=== PATIENT | female | born 1950 | race Caucasian/White ===

== ENCOUNTER → 2021-02-02 | Outpatient (CLI) | payer MEDICARE, OTHER | LOC: MAMO 11:30 | DX: Z12.31 Encounter for screening mammogram for malignant neoplasm of breast (principal); Z53.9 Procedure and treatment not carried out, unspecified reason ==

== ENCOUNTER → 2021-02-24 | Outpatient (CLI) | payer MEDICARE, OTHER | LOC: MAMO 09:30 | DX: Z12.31 Encounter for screening mammogram for malignant neoplasm of breast (principal); Z80.3 Family history of malignant neoplasm of breast | CPT/HCPCS: 77063; 77067 ==

== ENCOUNTER → 2021-04-03 | Outpatient (CLI) | payer MEDICARE | LOC: MAMO 14:25 | DX: R92.8 Other abnormal and inconclusive findings on diagnostic imaging of breast (principal); Z78.0 Asymptomatic menopausal state | CPT/HCPCS: 77065; G0279 ==

== ENCOUNTER 2021-06-24 14:35 | Observation (INO) | payer MEDICARE, OTHER ==
[~2021-06-24] VITALS: Ht 167.6 cm; Wt 59.0 kg
[2021-06-24 15:20] LABS: HEMOGLOBIN 12.4 gm/dl (12.3-15.3); RED BLOOD COUNT 4.1 M/UL (4.00-5.10); WHITE BLOOD COUNT 7.8 K/UL (4.5-11.0)
[2021-06-24 15:57] LABS: BUN/CREATININE RATIO 20 (0-10)
[2021-06-25 02:09] LABS: HEMOGLOBIN 12.1 gm/dl (12.3-15.3); RED BLOOD COUNT 3.97 M/UL (4.00-5.10); WHITE BLOOD COUNT 8.1 K/UL (4.5-11.0)
[2021-06-25 02:31] LABS: BUN/CREATININE RATIO 17 (0-10)
[2021-06-25] MEDS ORDERED: SUMATRIPTAN SU100 MG PO (10:51)
[2021-06-25] MEDS ORDERED: VENTOLIN HFA 66.7 GM INH (10:52)
[2021-06-25] MEDS ORDERED: ALENDRONATE SOD70 MG PO (10:53)
[2021-06-25] MEDS ORDERED: AMLODIPINE BESYL5 MG PO (10:53)
[2021-06-25] MEDS ORDERED: VITAMIN D 40400 UNIT PO (10:54)
[2021-06-25] MEDS ORDERED: PAROXETINE HCL30 MG PO (10:54)
[2021-06-25] MEDS ORDERED: HEALTHY EYES T1 EACH PO (10:55)
[2021-06-25] MEDS ORDERED: SUDAFED 30 MG T30 MG PO (10:58)
[2021-06-25] MEDS ORDERED: CLARITIN10 M1 PO (10:58)
[2021-06-26 03:26] LABS: BUN/CREATININE RATIO 18 (0-10)
== END 2021-06-26 11:43 | disposition home or self-care (01) ==
LOC: ER1 14:35 → M/S 18:51 → CDU 18:51 → M/S 06-25 06:48
PROVIDERS: Emergency Medicine; ADMIT Internal Medicine
DX: E86.1 Hypovolemia (principal); S20.211A Contusion of right front wall of thorax, initial encounter; S30.1XXA Contusion of abdominal wall, initial encounter; R11.2 Nausea with vomiting, unspecified; R19.7 Diarrhea, unspecified; I45.10 Unspecified right bundle-branch block; K90.0 Celiac disease; G43.909 Migraine, unspecified, not intractable, without status migrainosus; R20.2 Paresthesia of skin; R74.01 Elevation of levels of liver transaminase levels; M81.0 Age-related osteoporosis without current pathological fracture; L92.8 Other granulomatous disorders of the skin and subcutaneous tissue; M41.9 Scoliosis, unspecified; Z20.822 Contact with and (suspected) exposure to COVID-19; Z87.891 Personal history of nicotine dependence; W18.30XA Fall on same level, unspecified, initial encounter; Y92.017 Garden or yard in single-family (private) house as the place of occurrence of the external cause; Z91.018 Allergy to other foods; Z79.899 Other long term (current) drug therapy
CPT/HCPCS: ECHO; 70450; 80053; 80307; 81001; 82550; 82553; 83036; 83605; 83735; 83874; 84439; 84443; 84484; 85025; 85027; 87040; 93005; 93306; 93880; 96374; 96375; 96376; 99285; G0378; J2270; J2405; J7030; J7120; Q9967; U0002

== ENCOUNTER → 2021-12-28 | Outpatient (CLI) | payer MEDICARE, OTHER ==
[~2021-12-28] MED LIST: ALENDRONATE SOD70 MG PO; AMLODIPINE BESYL5 MG PO; CLARITIN10 M1 PO; HEALTHY EYES T1 EACH PO; PAROXETINE HCL30 MG PO; SUDAFED 30 MG T30 MG PO; SUMATRIPTAN SU100 MG PO; VENTOLIN HFA 66.7 GM INH; VITAMIN D 40400 UNIT PO
== END ==
LOC: RAD 13:31
DX: M41.20 Other idiopathic scoliosis, site unspecified (principal); R05.3 Chronic cough; M51.36 Other intervertebral disc degeneration, lumbar region; M47.814 Spondylosis without myelopathy or radiculopathy, thoracic region; M51.34 Other intervertebral disc degeneration, thoracic region; M47.816 Spondylosis without myelopathy or radiculopathy, lumbar region
CPT/HCPCS: 71046; 72070; 72110; 72220

== ENCOUNTER → 2022-03-01 | Outpatient (CLI) | payer MEDICARE, OTHER ==
[2022-03-02 15:10] LABS: ENDOMYSIAL ANTIBODY IGA Negative (Negative); IMMUNOGLOBULIN A, QN, SERUM 129 mg/dL (87-352); T-TRANSGLUTAMINASE (TTG) IGA <2 U/mL (0-3); T-TRANSGLUTAMINASE (TTG) IGG <2 U/mL (0-5)
== END ==
LOC: LAB 14:27
PROVIDERS: Internal Medicine Gastroenterology
DX: R19.7 Diarrhea, unspecified (principal)
CPT/HCPCS: 36415; 82784

== ENCOUNTER → 2022-03-01 | Outpatient (CLI) | payer MEDICARE, OTHER | LOC: EXRD 02-22 10:30 | DX: Z78.0 Asymptomatic menopausal state (principal); M85.852 Other specified disorders of bone density and structure, left thigh | CPT/HCPCS: 77080 ==

== ENCOUNTER → 2022-04-29 | Outpatient (CLI) | payer MEDICARE, OTHER | LOC: MAMO 11:30 | DX: Z12.31 Encounter for screening mammogram for malignant neoplasm of breast (principal); Z78.0 Asymptomatic menopausal state | CPT/HCPCS: 77063; 77067 ==